=== PATIENT | female | born 1950 | race Caucasian/White ===

== ENCOUNTER 2016-10-05 19:42 | Observation (INO) | payer OTHER, MEDICAID ==
[~2016-10-05] VITALS: Ht 162.6 cm; Wt 68.1 kg
[~2016-10-05 19:42] MED LIST: AMIT25TA20 PO; AUGM875T PO; CLIN150 PO; GLIP5 PO; LORA-474 PO; METF500 PO; METO100T9 PO; MOME17I; MORP1INJ45 PO; MS C30TA5 PO; OMEP20TA39 PO; TIZA4 PO; ZOCO40TA PO
[2016-10-05 20:05] VITALS: BP 197/102; PULSE 72; RESP 18; TEMP 97.6; O2SAT 97
[2016-10-05] MEDS ORDERED: METO100T PO (22:18)
[2016-10-05] MEDS ORDERED: GLIP-157 PO (22:18)
[2016-10-05] MEDS ORDERED: GLIP5TAB8 PO (22:18)
[2016-10-05] MEDS ORDERED: METF1000 PO (22:18)
[2016-10-05] MEDS ORDERED: CLAR10CA3 PO (22:18)
[2016-10-05] MEDS ORDERED: MORP1TAB25 PO (22:18)
[2016-10-05] MEDS ORDERED: AMIT50TA3 PO (22:18)
[2016-10-05] MEDS ORDERED: SIMV40TA PO (22:18)
[2016-10-05] MEDS ORDERED: FLUT1SPR5 EACH NARE (22:18)
[2016-10-05] MEDS ORDERED: TIZA4CAP3 PO (22:18)
[2016-10-05] MEDS ORDERED: REST0.05 EACH EYE (22:18)
[2016-10-05 22:25] VITALS: BP 235/98; PULSE 65; PULSE 66; RESP 18; O2SAT 95
[2016-10-05] MEDS ORDERED: PANTOPRAZOLE INJ 80 MG in SODIUM CHLORIDE 0.9% INJ 35 ML IV ONE (22:30)
[2016-10-05] MEDS ORDERED: ONDANSETRON HCL 4 MG/2 ML VIAL IVP ONE (22:30)
[2016-10-05] MEDS ORDERED: SODIUM CHLOR 0.9% 1000 ML INJ 1,000 ML IV SCH (22:30)
[2016-10-05] MEDS ORDERED: FAMOTIDINE 20 MG/2 ML VIAL IV PUSH ONE (22:30)
[2016-10-05] MEDS ORDERED: SODIUM CHLORIDE 0.9% FLUSH 5 ML FLUSH IVF PRN (22:30)
--- NOTE | 2016-10-05 22:49 | PD ---
HPI Chief Complaint: GI Complaint Time Seen by Provider: 22:26 Travel History International Travel<30 days: No Contact w/Intl Traveler<30days: No Traveled to known affect area: No History of Present Illness HPI The patient is a 65-year-old female that complains of dark tarry stools beginning 11 days ago. There is been some nausea without vomiting and primarily left lower quadrant abdominal pain. She denies any fever. She apparently just had a workup for parasites, stool for parasites, and this was negative. She called her doctor's office and they told her to go to the emergency department. She does not drink alcohol, take aspirin or nonsteroidal anti-inflammatory medications. She is a joj-txwkmge-rnwukeayc diabetic. 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, CERVICAL SPINE) Neurologic: Yes (SCIATIC NERVE PROBLEMS) Psychiatric: Yes Reproductive: No Respiratory: No Myocardial Infarction: No Radiation Therapy: No Renal Failure: No Thyroid Disease: No Ulcer: No ?: Not Menopausal: Yes : 4 Para: 2 Miscarriage: 2 Past Surgical History AICD: No Appendectomy: No Arteriovenous Shunt: No Cardiac Surgery: No Cholecystectomy: No Ear Surgery: No Endocrine Surgery: No Eye Surgery: No Genitourinary Surgery: No Gynecologic Surgery: Yes (RIGHT FALLOPIAN TUBE REMOVED) Insulin Pump: No Joint Replacement: No Neurologic Surgery: No Oral Surgery: No Pacemaker: No Thoracic Surgery: No Other Surgery: Yes Social History Alcohol Use: No Tobacco Use: No (NEVER) Substance Use: No Allergies-Medications (Allergen,Severity, Reaction): Coded Allergies: Latex (Verified Allergy, Unknown, "Kee in a hole in me", 10/05/16) Uncoded Allergies: Catapres patch (Allergy, Severe, "Kee in a hole in me", 06/17/16) Reported Meds & Prescriptions Reported Meds & Active Scripts Active Colace (Docusate Sodium) 100 Mg Cap 100 Mg PO BID Miralax Powder (Polyethylene Glycol 3350 Powder) 17 Gm Powd 17 Gm PO DAILY Mix and dissolve one measuring cap-ful (17 grams) in water or juice. Reported Restasis Opth Drops (Cyclosporine Opth Drops) 0.05% Emul 1 Drop EACH EYE BID Morphine ER (Morphine Sulfate) 30 Mg Tab 30 Mg PO Q8H Tizanidine (Tizanidine HCl) 4 Mg Cap 4 Mg PO HS Claritin (Loratadine) 10 Mg Cap 10 Mg PO DAILY Flonase Allergy Relief Nasal [place] (Fluticasone Nasal [place]) 50 Mcg/Act [place] 50 Mcg EACH NARE BID PRN Metoprolol Tartrate 100 Mg Tab 100 Mg PO BID Simvastatin 40 Mg Tab 40 Mg PO HS Glipizide XL (Glipizide) 5 Mg Jum[place] 5 Mg PO DAILY PRN Take with breakfast or first main meal of the day Glipizide 5 Mg Tab 5 Mg PO BIDAC Take 30 minutes before a meal Metformin (Metformin HCl) 1,000 Mg Tab 1,000 Mg PO BIDPC With meals Amitriptyline (Amitriptyline HCl) 50 Mg Tab 50 Mg PO HS Review of Systems Except as stated in HPI: all other systems reviewed are Neg Physical Exam Narrative GENERAL: The patient is alert, oriented 3, fairly good color in minimal distress with her abdominal discomfort in the left lower quadrant. Her vital signs show blood pressure 197/102 but are otherwise normal. SKIN: Warm and dry. HEAD: Atraumatic. Normocephalic. EYES: Pupils equal and round. No scleral icterus. No injection or drainage. ENT: No nasal bleeding or discharge. Mucous membranes pink and moist. NECK: Trachea midline. No JVD. CARDIOVASCULAR: Regular rate and rhythm. No murmur appreciated. RESPIRATORY: No accessory muscle use. Clear to auscultation. Breath sounds equal bilaterally. GASTROINTESTINAL: Abdomen soft, non-tender, nondistended. Hepatic and splenic margins not palpable. MUSCULOSKELETAL: No obvious deformities. No clubbing. No cyanosis. No edema. NEUROLOGICAL: Awake and alert. No obvious cranial nerve deficits. Motor grossly within normal limits. Normal speech. PSYCHIATRIC: Appropriate mood and affect; insight and judgment normal. RECTAL EXAM: There is a high mass on rectal exam but there is no tenderness, stool is dark brown and guaiac positive. There were several areas of bright red stool in the rectal exam stool. Apparently, the rectal exam causes some slight bleeding when I touched the rectal mass. Data Data Last Documented VS Vital Signs Date Time Temp Pulse Resp B/P Pulse Ox O2 Delivery O2 Flow Rate FiO2 10/06/16 01:10 70 16 193/79 97 Room Air 10/05/16 20:05 97.6 Orders Basic Metabolic Panel (Bmp) (10/05/16 22:30) Comprehensive Metabolic Panel (10/05/16 22:30) Lipase (10/05/16 22:30) Prothrombin Time / Inr (Pt) (10/05/16 22:30) Act Partial Throm Time (Ptt) (10/05/16 22:30) Urinalysis - C+S If Indicated (10/05/16 22:30) Ecg Monitoring (10/05/16 22:30) Iv Access Insert/Monitor (10/05/16 22:30) Oximetry (10/05/16 22:30) Ondansetron Inj (Zofran Inj) (10/05/16 22:30) Sodium Chlor 0.9% 1000 Ml Inj (Ns 1000 M (10/05/16 22:30) Sodium Chloride 0.9% Flush (Ns Flush) (10/05/16 22:30) Famotidine Inj (Pepcid Inj) (10/05/16 22:30) Pantoprazole Inj (Protonix Inj) (10/05/16 22:30) Pantoprazole Inj (Protonix Inj) (10/05/16 22:30) Complete Blood Count With Diff (10/05/16 22:39) Ct Abd/Pel W Iv Contrast(Rout) (10/05/16 22:39) Iohexol 350 Inj (Omnipaque 350 Inj) (10/05/16 23:59) Admit Order (Ed Use Only) (10/06/16 01:14) Labs Laboratory Tests Test 10/05/16 23:10 White Blood Count 7.9 TH/MM3 Red Blood Count 4.51 MIL/MM3 Hemoglobin 12.9 GM/DL Hematocrit 38.6 % Mean Corpuscular Volume 85.5 FL Mean Corpuscular Hemoglobin 28.6 PG Mean Corpuscular Hemoglobin 33.5 % Concent Red Cell Distribution Width 12.3 % Platelet Count 330 TH/MM3 Mean Platelet Volume 7.6 FL Neutrophils (%) (Auto) 59.3 % Lymphocytes (%) (Auto) 31.8 % Monocytes (%) (Auto) 6.1 % Eosinophils (%) (Auto) 2.0 % Basophils (%) (Auto) 0.8 % Neutrophils # (Auto) 4.6 TH/MM3 Lymphocytes # (Auto) 2.5 TH/MM3 Monocytes # (Auto) 0.5 TH/MM3 Eosinophils # (Auto) 0.2 TH/MM3 Basophils # (Auto) 0.1 TH/MM3 CBC Comment DIFF FINAL Differential Comment Prothrombin Time 12.0 SEC Prothromb Time International 1.1 RATIO Ratio Activated Partial 28.8 SEC Thromboplast Time Urine Color YELLOW Urine Turbidity CLEAR Urine pH 5.5 Urine Specific [place] 1.010 Urine Protein NEG mg/dL Urine Glucose (UA) NEG mg/dL Urine Ketones NEG mg/dL Urine Occult Blood NEG Urine Nitrite NEG Urine Bilirubin NEG Urine Leukocyte Esterase NEG Urine RBC 0-2 /hpf Urine WBC 0-2 /hpf Urine Squamous Epithelial 0-5 /hpf Cells Urine Bacteria NONE /hpf Microscopic Urinalysis Comment CULT NOT INDICATED Sodium Level 135 MEQ/L Potassium Level 3.7 MEQ/L Chloride Level 101 MEQ/L Carbon Dioxide Level 26.3 MEQ/L Anion Gap 8 MEQ/L Blood Urea Nitrogen 13 MG/DL Creatinine 0.97 MG/DL Estimat Glomerular Filtration 57 ML/MIN Rate Random Glucose 93 MG/DL Calcium Level 8.7 MG/DL Total Bilirubin 0.3 MG/DL Aspartate Amino Transf 10 U/L (AST/SGOT) Alanine Aminotransferase 12 U/L (ALT/SGPT) Alkaline Phosphatase 76 U/L Total Protein 7.3 GM/DL Albumin 3.6 GM/DL Lipase 50 U/L [facility] Medical Decision Making Medical Screen Exam Complete: Yes Emergency Medical Condition: Yes Medical Record Reviewed: Yes Interpretation(s) The CT abdomen/pelvis with IV contrast shows a 4.4 x 1.6 cm mass in the rectum. The urinalysis is normal and culture is not indicated. The coagulation profile shows a ProTime of 12.0 but is otherwise unremarkable. The CBC is normal. The complete metabolic profile shows a sodium of 135, GFR of 57 but is otherwise unremarkable. Differential Diagnosis Upper GI bleed, carcinoma the rectum, lower GI bleed, diverticular bleed, bleed from tumor, anemia, electrolyte disorder Narrative Course The patient has a rectal mass palpable on physical exam and seen on CT scan. The patient will be admitted to the [facility] Dr. San. She also has a GI bleed, likely from the tumor. Admitting Information Admitting Physician Requests: Observation Scripts Docusate Sodium (Colace)100 [id number] Mg PO BID #60 CAP Ref 0 Prov:Ana Vora MD 10/06/16 Polyethylene Glycol 3350 Powder (Miralax Powder)17 Gm Powd17 Gm PO DAILY #1 BOTTLE Ref 0 Mix and dissolve one measuring cap-ful (17 grams) in water or juice. Prov:Ana Vora MD 10/06/16 Ace Romero MD Oct 05, 2016 22:49
[2016-10-05 23:10] VITALS: BP 214/102; PULSE 65; RESP 18; O2SAT 98
[2016-10-05 23:33] LABS: BLOOD, URINE NEG (NEG); GLUCOSE,URINE NEG (NEG); KETONE, URINE NEG (NEG); NITRITE,URINE NEG (NEG); PH, URINE 5.5 (5.0-8.5)
[2016-10-05 23:34] LABS: AUTOMATED NEUTROPHIL # 4.6 TH/MM3 (1.8-7.7); BASOPHIL # 0.1 TH/MM3 (0-0.2); BASOPHIL % 0.8 % (0.0-2.0); EOSINOPHIL # 0.2 TH/MM3 (0-0.4); HEMATOCRIT 38.6 % (35.0-46.0); HEMO FLAGS DIFF FINAL; LYMPH % 31.8 % (9.0-44.0); LYMPHOCYTE # 2.5 TH/MM3 (1.0-4.8); MEAN CELL VOLUME 85.5 FL (80.0-100.0); MEAN CORPUSCULAR HEMOGLOBIN 28.6 PG (27.0-34.0); MEAN CORPUSCULAR HGB CONC 33.5 % (32.0-36.0); MONO % 6.1 % (0.0-8.0); NEUT % 59.3 % (16.0-70.0); PLATELET COUNT 330 TH/MM3 (150-450); RED BLOOD COUNT 4.51 MIL/MM3 (4.00-5.30); RED CELL DISTRIBUTION WIDTH 12.3 % (11.6-17.2); WHITE BLOOD COUNT 7.9 TH/MM3 (4.0-11.0)
[2016-10-05 23:37] LABS: COMMENT (UR) CULT NOT INDICATED; CULTURE IF INDICATED CULT NOT INDICATED; RBC, URINE 0-2 /hpf (0-3); SQUAMOUS EPITHELIAL CELL URINE 0-5 /hpf (0-5); URINE COLOR YELLOW (YELLW/STRAW); WBC, URINE 0-2 /hpf (0-5)
[2016-10-05 23:41] LABS: CHLORIDE 101 MEQ/L (98-107); POTASSIUM 3.7 MEQ/L (3.5-5.1); SODIUM (NA) 135 MEQ/L (136-145)
[2016-10-05 23:45] LABS: ANION GAP 8 MEQ/L (5-15); BICARBONATE 26.3 MEQ/L (21.0-32.0)
[2016-10-05 23:46] LABS: BLOOD UREA NITROGEN 13 MG/DL (7-18)
[2016-10-05 23:47] LABS: APTT (PATIENT) 28.8 SEC (24.3-30.1); INTERNATIONAL NORMALIZED RATIO 1.1 RATIO
[2016-10-05 23:48] LABS: ALT (GPT) 12 U/L (10-53); AST (GOT) 10 U/L (15-37); GLOMERULAR FILTRATION RATE 57 ML/MIN (>89)
[2016-10-05] MEDS: PANTOPRAZOLE INJ 80 MG in SODIUM CHLORIDE 0.9% INJ 100 ML IV SCH (23:49)
[2016-10-05 23:50] LABS: TOTAL BILIRUBIN ADULT 0.3 MG/DL (0.2-1.0)
[2016-10-05 23:51] LABS: ALKALINE PHOSPHATASE 76 U/L (45-117)
[2016-10-05] MEDS ORDERED: IOHEXOL 350 MG/ML 10 ML VIAL (for RAD DIAG) IV ONE (23:59)
[2016-10-06] VITALS (12 sets, daily range): BP systolic 158–237; BP diastolic 69–101; PULSE 66–95; RESP 16–18; TEMP 98.1–98.3; O2SAT 95–98
--- NOTE | 2016-10-06 00:34 | RADHPO ---
EXAM DATE/TIME: 10/05/2016 23:55 [place] COMPARISON: No previous studies available for comparison. INDICATIONS : Dark stools with lower abdominal pain. IV CONTRAST: 100 cc Omnipaque 350 (iohexol) IV ORAL CONTRAST: No oral contrast ingested. RADIATION DOSE: 10.58 CTDIvol (mGy) MEDICAL HISTORY : Hypertension. Gastroesophageal reflux disease. Renal calculi.Diabetes, Aortic stenosis. SURGICAL HISTORY : Salpingectomy, right. ENCOUNTER: Initial ACUITY: 2 weeks PAIN SCALE: 6/10 LOCATION: abdomen TECHNIQUE: Volumetric scanning of the abdomen and pelvis was performed. Using automated exposure control and ad justment of the mA and/or kV according to patient size, radiation dose was kept as low as reasonably achievable to obtain optimal diagnostic quality images. FINDINGS: There is a moderate hiatal hernia. Liver gallbladder, spleen, pancreas, adrenal glands, right kidney are unremarkable. Subcentimeter left upper pole renal cyst. Atherosclerotic calcification of the aort a and iliac vessels. Urinary bladder, uterus and adnexa are unremarkable. There is eccentric soft tis alice masslike area seen along the right posterolateral rectal wall on axial image 77 measuring 4.4 x 1 .6 cm in AP and transverse dimension suspect for a mass. The remainder of the large bowel is unremark able. There is no adenopathy or aneurysm. Lung bases are clear. Osseous structures are intact. CONCLUSION: 1. An eccentric irregular soft tissue mass is suspected within the rectum and direct visualization is recommended. 2. Atherosclerosis. 3. Tiny left renal cyst. Trevon Tate MD on October 06, 2016 at 0:31 Board Certified Radiologist. This report was verified electronically.
[2016-10-06] MEDS ORDERED: ACETAMINOPHEN 325 MG TAB PO PRN (02:00)
[2016-10-06] MEDS ORDERED: SODIUM CHLORIDE 0.9% FLUSH 5 ML FLUSH FLUSH PRN (02:00)
[2016-10-06] MEDS ORDERED: ONDANSETRON HCL 4 MG/2 ML VIAL IVP PRN (02:00)
[2016-10-06] MEDS ORDERED: NALOXONE HCL 0.4 MG/ML AMP IV PRN (02:00)
[2016-10-06] MEDS ORDERED: ACETYLCYSTEINE INJ 10,500 MG in DEXTROSE 5% IN WATER INJ 200 ML IV ONE ×4 (02:30→03:30)
[2016-10-06] MEDS: SODIUM CHLOR 0.9% 1000 ML INJ 1,000 ML IV SCH ×2 (03:03→09:19)
[2016-10-06 03:13] LABS: AUTOMATED NEUTROPHIL # 4.3 TH/MM3 (1.8-7.7); BASOPHIL # 0.1 TH/MM3 (0-0.2); BASOPHIL % 0.9 % (0.0-2.0); EOSINOPHIL # 0.1 TH/MM3 (0-0.4); EOSINOPHIL % 1.6 % (0.0-4.0); HEMATOCRIT 36.2 % (35.0-46.0); HEMO FLAGS DIFF FINAL; LYMPH % 29.2 % (9.0-44.0); MEAN CORPUSCULAR HEMOGLOBIN 28.5 PG (27.0-34.0); MEAN CORPUSCULAR HGB CONC 33.1 % (32.0-36.0); MONO % 4.7 % (0.0-8.0); NEUT % 63.6 % (16.0-70.0); PLATELET COUNT 299 TH/MM3 (150-450); RED BLOOD COUNT 4.21 MIL/MM3 (4.00-5.30); RED CELL DISTRIBUTION WIDTH 12.4 % (11.6-17.2); WHITE BLOOD COUNT 6.8 TH/MM3 (4.0-11.0)
[2016-10-06] MEDS ORDERED: ACETYLCYSTEINE INJ 3,500 MG in DEXTROSE 5% IN WATE 500 ML INJ 500 ML IV ONE ×4 (03:30→04:45)
[2016-10-06] MEDS ORDERED: FLUTICASONE PROPIONATE 50 MCG/ACT 16 GM NASAL SPRAY EACH NARE PRN (05:15)
[2016-10-06] MEDS ORDERED: MORPHINE SULFATE 30 MG CONTROLLED RELEASE TAB PO SCH (06:00)
[2016-10-06] MEDS ORDERED: PROMETHAZINE INJ 25 MG/ML VIAL IM ONE (07:30)
[2016-10-06] MEDS ORDERED: ACETYLCYSTEINE INJ 7,000 MG in DEXTROSE 5% IN WATE 1000ML INJ 1,000 ML IV ONE ×4 (07:38→08:45)
[2016-10-06 08:56] LABS: AUTOMATED NEUTROPHIL # 7.5 TH/MM3 (1.8-7.7); BASOPHIL # 0.4 TH/MM3 (0-0.2); BASOPHIL % 3.9 % (0.0-2.0); EOSINOPHIL # 0.1 TH/MM3 (0-0.4); EOSINOPHIL % 0.6 % (0.0-4.0); HEMATOCRIT 42.6 % (35.0-46.0); LYMPH % 10.2 % (9.0-44.0); MEAN CORPUSCULAR HGB CONC 32.2 % (32.0-36.0); MONO % 3.5 % (0.0-8.0); NEUT % 81.8 % (16.0-70.0); PLATELET COUNT 348 TH/MM3 (150-450); RED CELL DISTRIBUTION WIDTH 12.8 % (11.6-17.2); WHITE BLOOD COUNT 9.3 TH/MM3 (4.0-11.0)
[2016-10-06 08:57] LABS: HEMO FLAGS DIFF FINAL
[2016-10-06] MEDS ORDERED: SODIUM CHLORIDE 0.9% FLUSH 5 ML FLUSH FLUSH SCH (09:00)
[2016-10-06] MEDS ORDERED: CYCLOSPORINE 0.05% EACH EYE SCH (09:00)
[2016-10-06] MEDS ORDERED: METOPROLOL TARTRATE 100 MG TAB PO SCH (09:00)
[2016-10-06] MEDS: PANTOPRAZOLE INJ 80 MG in SODIUM CHLORIDE 0.9% INJ 100 ML IV SCH (09:19)
--- NOTE | 2016-10-06 11:37 | MB ---
cc: PRIYA SMART M.D. DATE OF CONSULTATION 10/06/2016 CHIEF COMPLAINT Rectal mass HISTORY OF PRESENT ILLNESS The patient is a 66-year-old female with a positive family history of colon cancer. She has not previously had a colonoscopy. She began having a change in her stools about two to three months ago, as well as some crampy diffuse abdominal pain. She noted a smaller stool, harder stool, and a darker stool. The abdominal pain worsened and she came to the emergency department with complaints of abdominal pain. On exam in the emergency department, rectal exam revealed what felt like a rectal mass, which was confirmed by CT scan. She states her normal bowel pattern is once daily and denies any fevers or chills. She denies any rectal bleeding any bright red blood per rectum today. She has had some mild nausea. She has had no fevers or chills. She did have some weight loss last year, but she has gained that back. She has had four pregnancies with two miscarriages and two vaginal deliveries. PAST MEDICAL HISTORY 1. Type 2 diabetes times 15 years 2. Aortic stenosis 3. Gastroesophageal reflux disease 4. Hypertension 5. Osteoarthritis 6. Sciatic. PAST SURGICAL HISTORY Fallopian tube excision. ALLERGIES LATEX, CATAPRES PATCH. MEDICATIONS 1. Restasis 2. Morphine 3. Tizanidine 4. Claritin 5. Flonase 6. Metoprolol 7. Simvastatin 8. Glipizide 9. Metformin 10. Amitriptyline SOCIAL HISTORY Patient's two years ago. She lives by herself. She denies any tobacco or alcohol. PHYSICAL EXAMINATION This is alert female who appears comfortable. NEUROLOGIC: Grossly intact. SKIN: Warm and dry. CARDIOVASCULAR: Regular rate. CHEST: Breathing is symmetric bilaterally and nonlabored. ABDOMEN: Soft, nondistended. She is not appreciably tender on my exam. EXTREMITIES: Reveal no edema. ANAL: External anal exam is essentially negative. Digital rectal examination reveals decreased sphincter tone. The patient has a palpable soft tissue mass toward the right front. I am able to get above it with my finger and it is easily movable. LABORATORY DATA Basically normal. Her hemoglobin is normative as an are her platelets. Chemistry is normal. Coags are normal and urinalysis is negative. IMPRESSION 1. Rectal mass 2. Abdominal pain PLAN I really see nothing about this rectal mass that should cause her any kind of abdominal pain. She has no evidence of blockage. This is really not large enough to be causing any significant abdominal pain, but would explain possibly some pelvic discomfort. I will give her some laxatives to see if perhaps she has some constipation that is causing some discomfort, but I can easily get my finger past the mass and so I do not think this causing any kind of an obstruction. I will follow up with her as an outpatient. She can come to my office next week after she is discharged from the hospital. We will get her set up for colonoscopy. If indeed this is just a polyp, she would be a good candidate for a transanal polypectomy. If, biopsies come back positive for cancer, we would need to discuss radiation, chemotherapy and/or surgery. Thank you very much for your kind referral. MD JOSH Tadeo/DIMITRI /10:59 AM /11:14 AM ELBA
[2016-10-06] MEDS ORDERED: COLA100C3 PO (12:24)
[2016-10-06] MEDS ORDERED: MIRA33504 PO (12:24)
--- NOTE | 2016-10-06 12:24 | HHI.DCPOC ---
Discharge Care Plan Diagnosis: (1) Rectal mass (2) DM (diabetes mellitus) Goals to Promote Your Health * To prevent worsening of your condition and complications * To maintain your health at the optimal level Directions to Meet Your Goals Take your medications as prescribed Follow your dietary instruction Follow activity as directed Keep your appointments as scheduled Take your immunizations and boosters as scheduled If your symptoms worsen call your PCP, if no PCP go to Urgent Care Center or Emergency Room Smoking is Dangerous to Your Health. Avoid second hand smoke Call the 24-hour hour crisis hotline for domestic abuse at Ana Vora MD Oct 06, 2016 12:24
--- NOTE | 2016-10-06 12:29 | HHI.HP ---
[facility] Non-Staff Admission Diagnosis GI bleed, rectal mass Diagnoses: Chief Complaint: Dark stools Travel History International Travel<30 Days: No Contact w/Intl Traveler <30 Da: No Traveled to Known Affected Are: No History of Present Illness Patient is a 65-year-old female who came to the emergency room complaining of dark stools for 11 days. Patient had some abdominal discomfort and had some concern to come to the emergency room. Her primary doctor actually urged her to come to the emergency room. Patient says she had some outpatient evaluation including stool studies but does not recall the results of those. She did have Hemoccult-positive stools in the emergency room however hemoglobin is quite stable. On exam for colorectal surgery there is a small soft mass which is easily past. There is no tenderness on exam. Patient does have need for outpatient follow-up with colorectal surgery. She notes increased constipation also. She does take narcotics for chronic back pain and is not active. Patient says that her pain is better when she takes morphine and tizanidine. She does have a sister who had colon cancer and in her early 50s. This point patient is educated regarding outpatient plans for follow-up which she is agreeable to. Review of Systems Constitutional: DENIES: Diaphoretic episodes, Fatigue, Fever, Weight gain, Weight loss, Chills, Dizziness, Change in appetite, Night Sweats Endocrine: DENIES: Abnorml menstrual pattern, Heat/cold intolerance, Polydipsia , Polyuria, Polyphagia Eyes: DENIES: Blurred vision, Diplopia, Eye inflammation, Eye pain, Vision loss , Photosensitivity, Double Vision Ears, nose, mouth, throat: DENIES: Tinnitus, Hearing loss, Vertigo, Nasal discharge, Oral lesions, Throat pain, Hoarseness, Ear Pain, Running Nose, Epistaxis, Sinus Pain, Toothache, Odynophagia Respiratory: DENIES: Apneas, Cough, Snoring, Wheezing, Hemoptysis, Sputum production, Shortness of breath Cardiovascular: DENIES: Chest pain, Palpitations, Syncope, Dyspnea on Exertion , PND, Lower Extremity Edema, Orthopnea, Claudication Gastrointestinal: DENIES: Abdominal pain, Black stools, Bloody stools, Constipation, Diarrhea, Nausea, Vomiting, Difficulty Swallowing, Anorexia Genitourinary: DENIES: Abnormal vaginal bleeding, Dysmenorrhea, Dyspareunia, Sexual dysfunction, Urinary frequency, Urinary incontinence, Urgency, Hematuria , Dysuria, Nocturia, Vaginal discharge Musculoskeletal: COMPLAINS OF: Back pain Integumentary: DENIES: Abnormal pigmentation, Pruritus, Rash, Nail changes, Breast masses, Breast skin changes, Nipple discharge Immunologic/allergic: DENIES: Eczema, Urticaria Neurologic: DENIES: Abnormal gait, Headache, Localized weakness, Paresthesias, Seizures, Speech Problems, Tremor, Poor Balance Psychiatric: DENIES: Anxiety, Confusion, Mood changes, Depression, Hallucinations, Agitation, Suicidal Ideation, Homicidal Ideation, Delusions Past Family Social History Past Medical History Diabetes mellitus type 2 Anxiety Chronic pain on chronic narcotics Past Surgical History Gynecological surgery Reported Medications Reviewed in the medical record Allergies: Coded Allergies: Latex (Verified Allergy, Unknown, "Kee in a hole in me", 10/05/16) Uncoded Allergies: Catapres patch (Allergy, Severe, "Kee in a hole in me", 06/17/16) Active Ordered Medications Reviewed and the medical record Family History Sister had colon cancer and in her early 50s Social History No current tobacco or alcohol, since 2013, lives alone Physical Exam Vital Signs Vital Signs Date Time Temp Pulse Resp B/P Pulse Ox O2 Delivery O2 Flow Rate FiO2 10/06/16 08:00 98.3 83 16 195/89 95 10/06/16 07:30 98.1 84 16 213/96 98 Room Air 10/06/16 07:11 17 98 Room Air 10/06/16 07:11 17 10/06/16 06:36 18 10/06/16 06:00 95 18 181/93 95 Room Air 10/06/16 06:00 18 10/06/16 05:00 80 18 225/101 95 Room Air 10/06/16 04:00 80 18 237/101 96 Room Air 10/06/16 04:00 18 10/06/16 03:05 70 158/71 95 Room Air 10/06/16 02:10 72 16 158/79 97 Room Air 10/06/16 01:35 80 16 196/90 95 Room Air 10/06/16 01:10 70 16 193/79 97 Room Air 10/06/16 00:10 66 18 163/69 96 Room Air 10/05/16 23:10 65 18 214/102 98 Room Air 10/05/16 22:25 65 18 95 Room Air 10/05/16 22:25 66 18 235/98 95 Room Air 10/05/16 20:05 97.6 72 18 197/102 97 Physical Exam GENERAL: This is a well-nourished, well-developed patient, in no apparent distress. SKIN: No rashes, ecchymoses or lesions. Cool and dry. HEAD: Atraumatic. Normocephalic. No temporal or scalp tenderness. EYES: Pupils equal round and reactive. Extraocular motions intact. No scleral icterus. No injection or drainage. ENT: Nose without bleeding, purulent drainage or septal hematoma. Throat without erythema, tonsillar hypertrophy or exudate. Uvula midline. Airway patent. NECK: Trachea midline. No JVD or lymphadenopathy. Supple, nontender, no meningeal signs. CARDIOVASCULAR: Regular rate and rhythm without murmurs, gallops, or rubs. RESPIRATORY: Clear to auscultation. Breath sounds equal bilaterally. No wheezes , rales, or rhonchi. GASTROINTESTINAL: Abdomen soft, non-tender, nondistended. No hepato-splenomegaly , or palpable masses. No guarding. MUSCULOSKELETAL: Extremities without clubbing, cyanosis, or edema. No joint tenderness, effusion, or edema noted. No calf tenderness. Negative Homans sign bilaterally. NEUROLOGICAL: Awake and alert. Cranial nerves II through XII intact. Motor and sensory grossly within normal limits. Five out of 5 muscle strength in all muscle groups. Normal speech. Laboratory Laboratory Tests Test 10/05/16 10/06/16 10/06/16 23:10 02:50 08:30 White Blood Count 7.9 6.8 9.3 Red Blood Count 4.51 4.21 4.90 Hemoglobin 12.9 12.0 13.7 Hematocrit 38.6 36.2 42.6 Mean Corpuscular Volume 85.5 86.0 87.0 Mean Corpuscular Hemoglobin 28.6 28.5 28.0 Mean Corpuscular Hemoglobin 33.5 33.1 32.2 Concent Red Cell Distribution Width 12.3 12.4 12.8 Platelet Count 330 299 348 Mean Platelet Volume 7.6 7.4 7.8 Neutrophils (%) (Auto) 59.3 63.6 81.8 Lymphocytes (%) (Auto) 31.8 29.2 10.2 Monocytes (%) (Auto) 6.1 4.7 3.5 Eosinophils (%) (Auto) 2.0 1.6 0.6 Basophils (%) (Auto) 0.8 0.9 3.9 Neutrophils # (Auto) 4.6 4.3 7.5 Lymphocytes # (Auto) 2.5 2.0 1.0 Monocytes # (Auto) 0.5 0.3 0.3 Eosinophils # (Auto) 0.2 0.1 0.1 Basophils # (Auto) 0.1 0.1 0.4 CBC Comment DIFF FINAL DIFF FINAL DIFF FINAL Differential Comment Prothrombin Time 12.0 Prothromb Time International 1.1 Ratio Activated Partial 28.8 Thromboplast Time Urine Color YELLOW Urine Turbidity CLEAR Urine pH 5.5 Urine Specific [place] 1.010 Urine Protein NEG Urine Glucose (UA) NEG Urine Ketones NEG Urine Occult Blood NEG Urine Nitrite NEG Urine Bilirubin NEG Urine Leukocyte Esterase NEG Urine RBC 0-2 Urine WBC 0-2 Urine Squamous Epithelial 0-5 Cells Urine Bacteria NONE Microscopic Urinalysis Comment CULT NOT INDICATED Sodium Level 135 Potassium Level 3.7 Chloride Level 101 Carbon Dioxide Level 26.3 Anion Gap 8 Blood Urea Nitrogen 13 Creatinine 0.97 Estimat Glomerular Filtration 57 Rate Random Glucose 93 Calcium Level 8.7 Total Bilirubin 0.3 Aspartate Amino Transf 10 (AST/SGOT) Alanine Aminotransferase 12 (ALT/SGPT) Alkaline Phosphatase 76 Total Protein 7.3 Albumin 3.6 Lipase 50 Result Diagram: 10/06/1682910/05/162309 Imaging Last Impressions Abdomen/Pelvis CT 10/05/162238 Signed Impressions: Service Date/Time: Wednesday, October 05, 2016 23:55 - CONCLUSION: 1. An eccentric irregular soft tissue mass is suspected within the rectum and direct visualization is recommended. 2. Atherosclerosis. 3. Tiny left renal cyst. Trevon Tate MD Assessment and Plan Problem List: (1) Rectal mass ICD Code: K62.9 Status: Acute Plan: Without any evidence of obstruction. Patient will need outpatient follow -up per colorectal surgery. Continue with stool softeners to relieve constipation (2) DM (diabetes mellitus) ICD Code: E11.9 Status: Chronic Plan: Continue home medications Currently stable Assessment and Plan Discharge home Diet diabetic Activity unrestricted Follow-up with colorectal surgery 1 week Ana Vora MD Oct 06, 2016 12:29
--- NOTE | 2016-10-06 13:41 | EKG ---
Date Performed: 10/06/2016 Time Performed: 08:45:54 PTAGE: 65 years EKG: BASELINE ARTIFACT PRESENT. Sinus rhythm with borderline 1st degree A-V block. Possible anteroseptal infarct - age undetermined Abnormal ECG COMPARED TO PRIOR ELECTROCARDIOGRAM, Poor R wave progression is present but could be due to changes i n lead placement. Clinical correlation suggested. PREVIOUS TRACING : 06/17/2016 14.20 DOCTOR: Ravi Salgado Interpretating Date/Time 10/06/2016 13:39:41
[2016-10-06] MEDS ORDERED: AMITRIPTYLINE HCL 50 MG TAB PO SCH (21:00)
[2016-10-06] MEDS ORDERED: PRAVASTATIN SOD 80 MG TAB PO SCH (21:00)
== END 2016-10-06 13:20 | disposition home or self-care (01) ==
LOC: PHED 19:42 → PHEDA 10-06 01:16 → PHEDH 10-06 05:16 → PH3A 10-06 08:30
PROVIDERS: ADMIT Hospitalist; ATTEND Hospitalist
DX: K62.89 Other specified diseases of anus and rectum (principal); R10.84 Generalized abdominal pain; R19.5 Other fecal abnormalities; K92.2 Gastrointestinal hemorrhage, unspecified; I10 Essential (primary) hypertension; I35.0 Nonrheumatic aortic (valve) stenosis; E11.9 Type 2 diabetes mellitus without complications; K21.9 Gastro-esophageal reflux disease without esophagitis; K59.00 Constipation, unspecified; M54.9 Dorsalgia, unspecified; G89.29 Other chronic pain; R94.31 Abnormal electrocardiogram [ECG] [EKG]; Z80.0 Family history of malignant neoplasm of digestive organs; Z79.891 Long term (current) use of opiate analgesic; Z87.442 Personal history of urinary calculi
CPT/HCPCS: 74177; 80053; 81001; 83690; 85025; 85610; 85730; 93005; 96365; 96366; 96375; 99285; C9113; G0378; J0132; J2405; J2550; J7030; J7060; Q9967

== ENCOUNTER 2016-10-19 10:56 | Emergency (ER) | payer OTHER, MEDICAID ==
[~2016-10-19] VITALS: Ht 162.6 cm; Wt 72.0 kg
[~2016-10-19 10:56] MED LIST changes: -AMIT25TA20 PO; +AMIT50TA3 PO; -AUGM875T PO; +CLAR10CA3 PO; -CLIN150 PO; +COLA100C3 PO; +FLUT1SPR5 EACH NARE; +GLIP-157 PO; -GLIP5 PO; +GLIP5TAB8 PO; -LORA-474 PO; +METF1000 PO; -METF500 PO; +METO100T PO; -METO100T9 PO; +MIRA33504 PO; -MOME17I; -MORP1INJ45 PO; +MORP1TAB25 PO; -MS C30TA5 PO; -OMEP20TA39 PO; +REST0.05 EACH EYE; +SIMV40TA PO; -TIZA4 PO; +TIZA4CAP3 PO; -ZOCO40TA PO
[2016-10-19 11:00] VITALS: BP 203/90; PULSE 66; RESP 15; TEMP 98; O2SAT 95
[2016-10-19] MEDS ORDERED: ACYC800T PO (11:14)
[2016-10-19] MEDS ORDERED: SODIUM CHLORIDE 0.9% FLUSH 5 ML FLUSH IVF PRN (11:30)
[2016-10-19] MEDS ORDERED: SODIUM CHLOR 0.9% 1000 ML INJ 1,000 ML IV SCH (11:30)
[2016-10-19 12:00] VITALS: BP 167/75; PULSE 62; RESP 16; O2SAT 95
--- NOTE | 2016-10-19 12:08 | PD ---
HPI Chief Complaint: GI Complaint Time Seen by Provider: 11:20 Travel History International Travel<30 days: No Contact w/Intl Traveler<30days: No Traveled to known affect area: No History of Present Illness HPI Is a 66-year-old woman who presents to the emergency department complaining of abdominal pain. Symptoms been ongoing for some time. She was seen in the hospital on the after she began to develop worsening pain and loose stools. She had a CT scan done that showed a small perianal soft tissue mass. She is admitted to the hospital and seen by Dr. Rueda. Etiology of her pain was on clear because it did not seem like the mass is causing any evidence of obstruction, and the mass itself was not expected to be painful. She was discharged from outpatient follow-up but returns to the emergency department today complaining of worsening pain, now with nausea and vomiting for the past 48 hours, and ongoing loose dark stools. Loose stools apparently started shortly after leaving the hospital. They have been dark for some time. She is taking Pepto-Bismol occasionally. Review systems is positive for abdominal bloating and feeling of distention, as well as throat burning with the vomiting for the past couple days. History Past Medical History Narrative Medical Diabetes Aortic stenosis GERD Hypertension Osteoarthritis Sciatica Menopausal: Yes : 4 Para: 2 Social History Alcohol Use: No Tobacco Use: No (NEVER) Allergies-Medications (Allergen,Severity, Reaction): Coded Allergies: Actonel (Verified Allergy, Severe, 10/19/16) Latex (Verified Allergy, Unknown, "Kee in a hole in me", 10/05/16) Uncoded Allergies: Catapres patch (Allergy, Severe, "Kee in a hole in me", 06/17/16) Reported Meds & Prescriptions Reported Meds & Active Scripts Active Reported Acyclovir 800 Mg Tab 800 Mg PO 5 TIMES A DAY Restasis Opth Drops (Cyclosporine Opth Drops) 0.05% Emul 1 Drop EACH EYE BID Morphine ER (Morphine Sulfate) 30 Mg Tab 30 Mg PO Q8H Tizanidine (Tizanidine HCl) 4 Mg Cap 4 Mg PO HS Claritin (Loratadine) 10 Mg Cap 10 Mg PO DAILY Flonase Nasal [place] (Fluticasone Nasal [place]) 50 Mcg/Act [place] 50 Mcg EACH NARE BID PRN Metoprolol Tartrate 100 Mg Tab 100 Mg PO BID Simvastatin 40 Mg Tab 40 Mg PO HS Glipizide 5 Mg Tab 5 Mg PO BIDAC Take 30 minutes before a meal Metformin (Metformin HCl) 1,000 Mg Tab 1,000 Mg PO BIDPC With meals Amitriptyline (Amitriptyline HCl) 50 Mg Tab 50 Mg PO HS Review of Systems Except as stated in HPI: all other systems reviewed are Neg Physical Exam Narrative GENERAL: Well-appearing 66 year-old woman, no acute distress. SKIN: Warm and dry. NECK: Trachea midline. No JVD. CARDIOVASCULAR: Regular rate and rhythm. No murmur appreciated. RESPIRATORY: No accessory muscle use. Clear to auscultation. Breath sounds equal bilaterally. GASTROINTESTINAL: Abdomen is obese, possibly slightly distended. Minimal diffuse tenderness. No rebound or guarding. RECTAL: I don't really palpate any significant abnormal mass. There is no evidence of stenosis or stricture or blockage. Stool is soft, dark in color, trace guaiac positive. MUSCULOSKELETAL: No obvious deformities. No edema. NEUROLOGICAL: Awake and alert. No obvious cranial nerve deficits. Motor grossly within normal limits. Normal speech. PSYCHIATRIC: Appropriate mood and affect; insight and judgment normal. Data Data Last Documented VS Vital Signs Date Time Temp Pulse Resp B/P Pulse Ox O2 Delivery O2 Flow Rate FiO2 10/19/16 12:00 62 16 167/75 95 Room Air 10/19/16 11:00 98.0 Orders Complete Blood Count With Diff (10/19/16 11:30) Comprehensive Metabolic Panel (10/19/16 11:30) Lipase (10/19/16 11:30) Lactic Acid (10/19/16 11:30) Urinalysis - C+S If Indicated (10/19/16 11:30) Ct Abd/Pel W Iv Contrast(Rout) (10/19/16 11:30) Iv Access Insert/Monitor (10/19/16 11:30) Ecg Monitoring (10/19/16 11:30) Oximetry (10/19/16 11:30) Sodium Chlor 0.9% 1000 Ml Inj (Ns 1000 M (10/19/16 11:30) Sodium Chloride 0.9% Flush (Ns Flush) (10/19/16 11:30) Iohexol 350 Inj (Omnipaque 350 Inj) (10/19/16 13:30) Labs Laboratory Tests Test 10/19/16 10/19/16 11:00 12:07 White Blood Count 8.0 TH/MM3 Red Blood Count 4.33 MIL/MM3 Hemoglobin 12.6 GM/DL Hematocrit 37.1 % Mean Corpuscular Volume 85.7 FL Mean Corpuscular Hemoglobin 29.1 PG Mean Corpuscular Hemoglobin 33.9 % Concent Red Cell Distribution Width 13.3 % Platelet Count 291 TH/MM3 Mean Platelet Volume 7.6 FL Neutrophils (%) (Auto) 77.2 % Lymphocytes (%) (Auto) 15.5 % Monocytes (%) (Auto) 6.3 % Eosinophils (%) (Auto) 0.8 % Basophils (%) (Auto) 0.2 % Neutrophils # (Auto) 6.2 TH/MM3 Lymphocytes # (Auto) 1.2 TH/MM3 Monocytes # (Auto) 0.5 TH/MM3 Eosinophils # (Auto) 0.1 TH/MM3 Basophils # (Auto) 0.0 TH/MM3 CBC Comment DIFF FINAL Differential Comment Sodium Level 130 MEQ/L Potassium Level 4.5 MEQ/L Chloride Level 94 MEQ/L Carbon Dioxide Level 28.9 MEQ/L Anion Gap 7 MEQ/L Blood Urea Nitrogen 18 MG/DL Creatinine 0.95 MG/DL Estimat Glomerular Filtration 58 ML/MIN Rate Random Glucose 182 MG/DL Calcium Level 9.0 MG/DL Total Bilirubin 0.3 MG/DL Aspartate Amino Transf 11 U/L (AST/SGOT) Alanine Aminotransferase 13 U/L (ALT/SGPT) Alkaline Phosphatase 76 U/L Total Protein 7.1 GM/DL Albumin 3.8 GM/DL Lipase 60 U/L Lactic Acid Level 2.1 mmol/L [facility] Medical Decision Making Medical Screen Exam Complete: Yes Emergency Medical Condition: Yes Interpretation(s) LABS: CBC is unremarkable. CMP is generally unremarkable. Lactate 2.[address] abdomen and pelvis: Negative Differential Diagnosis Abdominal pain, cramping, distention, blockage, obstruction, other Narrative Course Medical decision making Initial: This Is a 66 year-old woman who presents to the emergency department with ongoing abdominal pain, rectal masses seems possibly incidental, but also with abdominal distention and vomiting now. Chief concern would be for developing obstruction. This seems unlikely. We'll check labs, imaging, likely discharge outpatient follow-up. Diagnosis Primary Impression: Rectal mass Additional Impression: Abdominal pain Qualified Code: R10.30 - Lower abdominal pain Additional Instructions: Take Bentyl as needed for abdominal pain. Take Zofran as needed for nausea or vomiting. Follow-up with Dr. Rueda as planned. Return to the emergency department for any new or worsening symptoms. Med/Other Pt SpecificInfo: Prescription(s) given Scripts Ondansetron Odt (Zofran Odt)4 Mg Tab4 Mg SL Q8HR PRN (Nausea/Vomiting) #15 TAB May substitute non-ODT form. Prov:Ermias Rodriguez MD 10/19/16 Dicyclomine (Bentyl)20 Mg Tab20 Mg PO QID PRN (ABDOMINAL CRAMPING) #20 TAB Prov:Ermias Rodriguez MD 10/19/16 Disposition: 01 DISCHARGE HOME Condition: Stable Ermias Rodriguez MD Oct 19, 2016 12:08
[2016-10-19 12:17] LABS: AUTOMATED NEUTROPHIL # 6.2 TH/MM3 (1.8-7.7); BASOPHIL % 0.2 % (0.0-2.0); EOSINOPHIL # 0.1 TH/MM3 (0-0.4); EOSINOPHIL % 0.8 % (0.0-4.0); HEMATOCRIT 37.1 % (35.0-46.0); HEMO FLAGS DIFF FINAL; LYMPH % 15.5 % (9.0-44.0); LYMPHOCYTE # 1.2 TH/MM3 (1.0-4.8); MEAN CELL VOLUME 85.7 FL (80.0-100.0); MEAN CORPUSCULAR HEMOGLOBIN 29.1 PG (27.0-34.0); MEAN CORPUSCULAR HGB CONC 33.9 % (32.0-36.0); MONO % 6.3 % (0.0-8.0); NEUT % 77.2 % (16.0-70.0); PLATELET COUNT 291 TH/MM3 (150-450); RED BLOOD COUNT 4.33 MIL/MM3 (4.00-5.30); RED CELL DISTRIBUTION WIDTH 13.3 % (11.6-17.2)
[2016-10-19 12:43] LABS: ALT (GPT) 13 U/L (10-53); ANION GAP 7 MEQ/L (5-15); AST (GOT) 11 U/L (15-37); BICARBONATE 28.9 MEQ/L (21.0-32.0); BLOOD UREA NITROGEN 18 MG/DL (7-18); CHLORIDE 94 MEQ/L (98-107); GLOMERULAR FILTRATION RATE 58 ML/MIN (>89); POTASSIUM 4.5 MEQ/L (3.5-5.1); SODIUM (NA) 130 MEQ/L (136-145)
[2016-10-19 12:45] LABS: ALKALINE PHOSPHATASE 76 U/L (45-117); TOTAL BILIRUBIN ADULT 0.3 MG/DL (0.2-1.0)
[2016-10-19] MEDS ORDERED: IOHEXOL 350 MG/ML 10 ML VIAL (for RAD DIAG) IV ONE (13:30)
--- NOTE | 2016-10-19 13:40 | RADRPT ---
EXAM DATE/TIME: 10/19/2016 13:07 [facility] COMPARISON: CT ABDOMEN & PELVIS W CONTRAST, October 05, 2016, 23:55. INDICATIONS : Lower abdominal pain with nausea and vomiting. IV CONTRAST: 95 cc Omnipaque 350 (iohexol) IV ORAL CONTRAST: No oral contrast ingested. RADIATION DOSE: 9.96 CTDIvol (mGy) MEDICAL HISTORY : Cardiovascular disease. Hypertension. Diabetes SURGICAL HISTORY : None. ENCOUNTER: Initial ACUITY: 2 days PAIN SCALE: 4/10 LOCATION: Bilateral lower quadrant TECHNIQUE: Volumetric scanning of the abdomen and pelvis was performed. Using automated exposure control and ad justment of the mA and/or kV according to patient size, radiation dose was kept as low as reasonably achievable to obtain optimal diagnostic quality images. FINDINGS: LOWER LUNGS: The visualized lower lungs are clear. Mild parenchymal and pleural scarring left base with a moderate size retrocardiac hiatal hernia. LIVER: Homogeneous density without lesion. There is no dilation of the biliary tree. No calcified gallston es. Gallbladder signal structure without wall thickening SPLEEN: Normal size without lesion. PANCREAS: Within normal limits. KIDNEYS: Normal in size and shape. There is no, stone or hydronephrosis. Subcentimeter cyst posterior lateral upper pole of the left kidney unchanged ADRENAL GLANDS: Within normal limits. VASCULAR: There is no aortic aneurysm. BOWEL/MESENTERY: The stomach, small bowel, and colon demonstrate no acute abnormality. There is no free intraperitone al air or fluid. Appendix visualized and normal. ABDOMINAL WALL: Within normal limits. RETROPERITONEUM: There is no lymphadenopathy. BLADDER: No wall thickening or mass. REPRODUCTIVE: Within normal limits. INGUINAL: There is no lymphadenopathy or hernia. MUSCULOSKELETAL: Within normal limits for patient age. CONCLUSION: Stable benign CT scan of the abdomen and pelvis. No acute abnormality. Keith Coppola MD on October 19, 2016 at 13:34 Board Certified Radiologist. This report was verified electronically.
[2016-10-19] MEDS ORDERED: ZOFR4TAB3 SL (14:14)
[2016-10-19] MEDS ORDERED: BENT20TA PO (14:14)
[2016-10-19 14:40] VITALS: BP 157/69; PULSE 62; RESP 16; O2SAT 95
[2016-10-19 14:49] LABS: BLOOD, URINE NEG (NEG); COMMENT (UR) CULT NOT INDICATED; CULTURE IF INDICATED CULT NOT INDICATED; GLUCOSE,URINE NEG (NEG); KETONE, URINE NEG (NEG); MUCUS URINE FEW /lpf (OCC); NITRITE,URINE NEG (NEG); URINE COLOR LIGHT-YELLOW (YELLW/STRAW)
== END 2016-10-19 16:15 | disposition home or self-care (01) ==
LOC: NEPC 10:56
DX: R93.8 Abnormal findings on diagnostic imaging of other specified body structures (principal); E11.9 Type 2 diabetes mellitus without complications; I10 Essential (primary) hypertension; Z79.84 Long term (current) use of oral hypoglycemic drugs
CPT/HCPCS: 74177; 80053; 81001; 83605; 83690; 85025; 96360; 99284; J7030; Q9967